=== PATIENT | male | born 1965 | race Caucasian/White ===

== ENCOUNTER 2025-01-09 21:59 | Inpatient (IN) | payer OTHER, SELFPAY ==
[2025-01-09 23:23] LABS: Hematocrit 39.6 % (42.0-52.0); Hemoglobin 13.1 g/dL (14.0-18.0); Mean Corpuscular Hemoglobin 29.5 pg (27.0-31.0); Mean Corpuscular Volume 89.2 fL (78.0-98.0); Platelet Count 386 10x3/uL (130-400); Red Blood Cell (RBC) Count 4.44 mill/uL (4.70-6.10); White Blood Cell (WBC) Count 12.87 10x3/uL (4.8-10.8)
[2025-01-09] MEDS ORDERED: Nitroglycerin 0.4 MG TAB (25 Tab Bottle) SL PRN (23:25)
[2025-01-09] MEDS ORDERED: Electrolyte Replacement Protocol 1 EACH FS SCH (23:30)
[2025-01-09] MEDS ORDERED: Acetaminophen 325 MG TAB PO PRN (23:30)
[2025-01-09] MEDS ORDERED: Nitroglycerin 50 MG/250 ML BOT 250 ML IVPB SCH (23:30)
[2025-01-09] MEDS ORDERED: Ondansetron PF 4 MG/2 ML Vial IVP PRN (23:30)
[2025-01-09] MEDS ORDERED: Calcium Carbonate 500 MG ChewTAB PO PRN (23:30)
[2025-01-09 23:35] LABS: ALT (SGPT) 65 U/L (Less than 45); AST (SGOT) 233 U/L (11-34); Albumin 3.7 g/dL (3.1-4.5); Alkaline Phosphatase 81 U/L (40-110); Anion Gap 17 mmol/L (10-20); BUN (Urea Nitrogen) 18 mg/dL (8.4-25.7); Bilirubin, Total 0.5 mg/dL (0.3-1.2); Calc. Creatinine Clearance 0 mL/min (70-130); Calcium 9.5 mg/dL (7.8-10.44); Carbon Dioxide 22 mmol/L (22-29); Chloride 105 mmol/L (98-107); Globulin 3.5 g/dL (2.4-3.5); Glucose 122 mg/dL (70-105); Potassium 3.9 mmol/L (3.5-5.1); Sodium 140 mmol/L (136-145)
[2025-01-09 23:40] LABS: INR-International Normal Ratio 1.1; PTT 42.5 sec (22.9-36.1); Prothrombin Time 14.6 sec (12.0-14.7)
[2025-01-09] MEDS ORDERED: Potassium Chloride 20 MEQ in Premix 1 BAG IVPB PRN (23:45)
[2025-01-09] MEDS ORDERED: PHOS-NAK 1 PKT PACK PO PRN (23:45)
[2025-01-10 00:30] LABS: Anisocytosis MODERATE=16-30 cells HPF (0-5); Macrocytosis SLIGHT = 6-15 cells HPF (0-5); Platelet Adequacy Comment Platelets Normal; Polychromasia SLIGHT = 2-3 cells HPF (0-2)
[2025-01-10 01:21] LABS: Hematocrit 39.4 % (42.0-52.0); Hemoglobin 12.6 g/dL (14.0-18.0); Platelet Count 404 10x3/uL (130-400)
[2025-01-10 02:27] VITALS: BMI 39.4
[2025-01-10] MEDS: Furosemide 40 MG (4 mL) VIAL SLOW IVP SCH (05:50)
[2025-01-10 07:33] LABS: Cardiac Risk 4.6 (Less than 4.5); Cholesterol 193 mg/dl (< 200 Desired); HDL Cholesterol 42 mg/dL (>60 Neg Risk); LDL Cholesterol, Calculated 138 mg/dL; Magnesium 2.0 mg/dL (1.6-2.6); Triglycerides 64 mg/dL (Less than 150)
[2025-01-10] MEDS: Carvedilol 3.125 MG TAB PO SCH (08:38)
[2025-01-10] MEDS: Aspirin 81 mg Enteric Coated Tablet PO SCH (08:38)
[2025-01-10 08:42] LABS: Anion Gap 21 mmol/L (10-20); BUN (Urea Nitrogen) 17 mg/dL (8.4-25.7); Calc. Creatinine Clearance 151 mL/min (70-130); Calcium 9.1 mg/dL (7.8-10.44); Carbon Dioxide 20 mmol/L (22-29); Chloride 103 mmol/L (98-107); Glucose 157 mg/dL (70-105); Potassium 4.3 mmol/L (3.5-5.1); Sodium 140 mmol/L (136-145)
[2025-01-10] MEDS: Heparin 10,000 UNITS/ 10 ML VIAL SLOW IVP SCH (10:06)
[2025-01-10] MEDS: Spironolactone 25 MG TAB PO SCH (10:18)
[2025-01-11 02:49] LABS: #Basophils 0.04 10x3/uL (0.0-0.2); #Eosinophils Less than 0.03 10x3/uL (0.0-0.7); #Monocytes 1.06 10x3/uL (0.11-0.59); #Neutrophils 11.32 10x3/uL (1.40-6.50); %Basophils 0.3 % (0.0-1.0); %Eosinophils 0.1 % (0.0-10.0); %Lymphocytes 16.1 % (21.0-51.0); %Monocytes 7.1 % (0.0-10.0); %Neutrophils 76.0 % (42.0-75.0); Hematocrit 38.9 % (42.0-52.0); Hemoglobin 12.5 g/dL (14.0-18.0); Mean Corpuscular Hemoglobin 29.3 pg (27.0-31.0); Mean Corpuscular Volume 91.3 fL (78.0-98.0); Platelet Count 426 10x3/uL (130-400); Red Blood Cell (RBC) Count 4.26 mill/uL (4.70-6.10); White Blood Cell (WBC) Count 14.89 10x3/uL (4.8-10.8)
[2025-01-11 05:09] LABS: ALT (SGPT) 62 U/L (Less than 45); AST (SGOT) 171 U/L (11-34); Albumin 3.3 g/dL (3.1-4.5); Alkaline Phosphatase 65 U/L (40-110); Anion Gap 17 mmol/L (10-20); BUN (Urea Nitrogen) 26 mg/dL (8.4-25.7); Bilirubin, Total 0.4 mg/dL (0.3-1.2); Calc. Creatinine Clearance 114 mL/min (70-130); Calcium 9.2 mg/dL (7.8-10.44); Carbon Dioxide 23 mmol/L (22-29); Chloride 106 mmol/L (98-107); Globulin 3.5 g/dL (2.4-3.5); Glucose 120 mg/dL (70-105); Potassium 3.8 mmol/L (3.5-5.1); Sodium 142 mmol/L (136-145)
[2025-01-11] MEDS: Spironolactone 25 MG TAB PO SCH (08:19)
[2025-01-11] MEDS ORDERED: Communication Order-Pharmacy FS SCH (09:30)
[2025-01-11] MEDS ORDERED: Heparin 10,000 UNITS/ 10 ML VIAL ONE (10:08)
[2025-01-11] MEDS ORDERED: Adenosine 6 mg (2 mL) VIAL ONE (10:08)
[2025-01-11] MEDS ORDERED: Lidocaine 1% (PF) 30 ML VIAL ONE (10:08)
[2025-01-11] MEDS ORDERED: Lidocaine 2% PF 100 mg/5 ml Syringe ONE (10:09)
[2025-01-11] MEDS ORDERED: Nitroglycerin 50 MG/250 ML BOT 250 ML ONE (10:09)
[2025-01-11] MEDS ORDERED: EPINEPHrine 1 MG/10 ML Abboject SYRINGE ONE (10:09)
[2025-01-11] MEDS ORDERED: PHENYLEPHRINE-NS 100 MCG/ML 10 ML SYRINGE ONE (10:10)
[2025-01-11] MEDS ORDERED: Iopamidol 370 76% 100 ML VIAL ONE (11:57)
[2025-01-11 15:10] LABS: Magnesium 2.2 mg/dL (1.6-2.6)
[2025-01-12 00:15] LABS: Hematocrit 41.2 % (42.0-52.0); Hemoglobin 13.0 g/dL (14.0-18.0); Platelet Count 449 10x3/uL (130-400)
[2025-01-12] MEDS: Vasopressin In 0.9 % NaCl 0 ML ONE (02:31)
[2025-01-12 09:06] LABS: #Basophils 0.08 10x3/uL (0.0-0.2); #Eosinophils 0.10 10x3/uL (0.0-0.7); #Monocytes 1.07 10x3/uL (0.11-0.59); #Neutrophils 7.75 10x3/uL (1.40-6.50); %Basophils 0.7 % (0.0-1.0); %Eosinophils 0.9 % (0.0-10.0); %Lymphocytes 16.8 % (21.0-51.0); %Monocytes 9.8 % (0.0-10.0); %Neutrophils 71.3 % (42.0-75.0); Hematocrit 41.1 % (42.0-52.0); Hemoglobin 13.5 g/dL (14.0-18.0); Mean Corpuscular Hemoglobin 29.3 pg (27.0-31.0); Mean Corpuscular Volume 89.3 fL (78.0-98.0); Platelet Count 419 10x3/uL (130-400); Red Blood Cell (RBC) Count 4.60 mill/uL (4.70-6.10); White Blood Cell (WBC) Count 10.88 10x3/uL (4.8-10.8)
[2025-01-12 09:15] LABS: Anion Gap 17 mmol/L (10-20); BUN (Urea Nitrogen) 24 mg/dL (8.4-25.7); Calc. Creatinine Clearance 125 mL/min (70-130); Calcium 9.2 mg/dL (7.8-10.44); Carbon Dioxide 26 mmol/L (22-29); Chloride 100 mmol/L (98-107); Glucose 105 mg/dL (70-105); Potassium 3.5 mmol/L (3.5-5.1); Sodium 139 mmol/L (136-145)
[2025-01-12 10:22] LABS: Magnesium 2.2 mg/dL (1.6-2.6)
[2025-01-12 13:56] LABS: BLOX Site Pulmonary artery
[2025-01-12 13:57] LABS: BLOX Site Right atrium
[2025-01-12 13:58] LABS: BLOX Site Right atrium
[2025-01-13 01:21] LABS: PTT 120.9 sec (22.9-36.1)
[2025-01-13 04:31] LABS: #Basophils 0.07 10x3/uL (0.0-0.2); #Eosinophils 0.19 10x3/uL (0.0-0.7); #Monocytes 0.86 10x3/uL (0.11-0.59); #Neutrophils 6.50 10x3/uL (1.40-6.50); %Basophils 0.7 % (0.0-1.0); %Eosinophils 2.0 % (0.0-10.0); %Lymphocytes 20.3 % (21.0-51.0); %Monocytes 8.9 % (0.0-10.0); %Neutrophils 67.6 % (42.0-75.0); Hematocrit 40.8 % (42.0-52.0); Hemoglobin 13.2 g/dL (14.0-18.0); Mean Corpuscular Hemoglobin 28.9 pg (27.0-31.0); Mean Corpuscular Volume 89.3 fL (78.0-98.0); Platelet Count 436 10x3/uL (130-400); Red Blood Cell (RBC) Count 4.57 mill/uL (4.70-6.10); White Blood Cell (WBC) Count 9.62 10x3/uL (4.8-10.8)
[2025-01-13 04:57] LABS: Anion Gap 16 mmol/L (10-20); BUN (Urea Nitrogen) 26 mg/dL (8.4-25.7); Calc. Creatinine Clearance 133 mL/min (70-130); Calcium 9.0 mg/dL (7.8-10.44); Carbon Dioxide 26 mmol/L (22-29); Chloride 100 mmol/L (98-107); Glucose 119 mg/dL (70-105); Magnesium 2.0 mg/dL (1.6-2.6); Potassium 3.3 mmol/L (3.5-5.1); Sodium 139 mmol/L (136-145)
[2025-01-13] MEDS: Magnesium 2 GM/50 ML(in water) 2 GM in Premix 1 BAG IVPB PRN (06:01)
[2025-01-13] MEDS: Dapagliflozin Propanediol 10 MG TAB PO SCH (08:50)
[2025-01-13] MEDS ORDERED: FLU (Fluarix Triv) 25-26 (6MOS UP)/PF 45 MCG/0.5 ML Syringe IM ONE (09:00)
[2025-01-13 10:54] LABS: Potassium 3.9 mmol/L (3.5-5.1)
[2025-01-13 23:47] LABS: Hematocrit 44.4 % (42.0-52.0); Hemoglobin 14.8 g/dL (14.0-18.0); Platelet Count 420 10x3/uL (130-400)
[2025-01-14 05:26] LABS: #Basophils 0.12 10x3/uL (0.0-0.2); #Eosinophils 0.17 10x3/uL (0.0-0.7); #Monocytes 1.14 10x3/uL (0.11-0.59); #Neutrophils 6.82 10x3/uL (1.40-6.50); %Basophils 1.1 % (0.0-1.0); %Eosinophils 1.6 % (0.0-10.0); %Lymphocytes 20.5 % (21.0-51.0); %Monocytes 10.9 % (0.0-10.0); %Neutrophils 65.4 % (42.0-75.0); Hematocrit 47.7 % (42.0-52.0); Hemoglobin 14.7 g/dL (14.0-18.0); Mean Corpuscular Hemoglobin 29.1 pg (27.0-31.0); Mean Corpuscular Volume 94.5 fL (78.0-98.0); Platelet Count 437 10x3/uL (130-400); Red Blood Cell (RBC) Count 5.05 mill/uL (4.70-6.10); White Blood Cell (WBC) Count 10.44 10x3/uL (4.8-10.8)
[2025-01-14 05:36] LABS: Anion Gap 17 mmol/L (10-20); BUN (Urea Nitrogen) 27 mg/dL (8.4-25.7); Calc. Creatinine Clearance 118 mL/min (70-130); Calcium 9.7 mg/dL (7.8-10.44); Carbon Dioxide 23 mmol/L (22-29); Chloride 101 mmol/L (98-107); Glucose 101 mg/dL (70-105); Magnesium 2.3 mg/dL (1.6-2.6); Potassium 3.8 mmol/L (3.5-5.1); Sodium 137 mmol/L (136-145)
[2025-01-14 16:38] VITALS: BP 136/90; TEMP 97.6
== END 2025-01-14 18:30 | disposition home or self-care (01) | DRG 280 ==
LOC: ERS 21:59 → ERHOLD 23:03 → CCU 01-10 02:05 → PCU 01-10 17:14 → CCU 01-11 12:21 → 2NO 01-12 15:29
PROVIDERS: ADMIT Student in an Organized Health Care Education/Training Program; ATTEND Internal Medicine
PROC: B2111ZZ Fluoroscopy of Multiple Coronary Arteries using Low Osmolar Contrast (ICD-10-PCS; principal; 2025-01-11)
PROC: B2161ZZ Fluoroscopy of Right and Left Heart using Low Osmolar Contrast (ICD-10-PCS; 2025-01-11)
PROC: 4A023N8 Measurement of Cardiac Sampling and Pressure, Bilateral, Percutaneous Approach (ICD-10-PCS; 2025-01-11)
DX: I21.4 Non-ST elevation (NSTEMI) myocardial infarction (principal); I50.21 Acute systolic (congestive) heart failure; I42.0 Dilated cardiomyopathy; Z88.0 Allergy status to penicillin; I11.0 Hypertensive heart disease with heart failure; F15.10 Other stimulant abuse, uncomplicated; I25.10 Atherosclerotic heart disease of native coronary artery without angina pectoris; F17.210 Nicotine dependence, cigarettes, uncomplicated
CPT/HCPCS: 36415; 36416; 80048; 80053; 80061; 82810; 83735; 83880; 84443; 84484; 85014; 85018; 85025; 85049; 85730; 93005; 93306; 93460; 93798; 96365; 96366; 96368; 99152; 99153; C1751; C1769; C1894; J0153; J0165; J0282; J0461; J1644; J1940; J2003; J2250; J3010; J3475; Q9967